=== PATIENT | male | born 1960 | race Caucasian/White ===

== ENCOUNTER 2016-05-17 00:01 | Emergency (ER) | payer OTHER ==
[~2016-05-17] VITALS: Ht 185.4 cm; Wt 147.0 kg
[2016-05-17] MEDS ORDERED: IRBE300T10 PO (00:15)
[2016-05-17] MEDS ORDERED: HYDR25TAB PO (00:15)
[2016-05-17] MEDS ORDERED: NS 1,000 ML IV SCH (01:22)
[2016-05-17] MEDS ORDERED: ONDANSETRON 4MG/2ML VIAL (J2405) IV ONE (01:30)
[2016-05-17] MEDS ORDERED: MORPHINE 4 MG/ML 1ML SYRINGE IV PRN (01:30)
[2016-05-17 01:49] LABS: BASO % 0.3 % (0.0-1.0); EOS # 0.2 K/mm3 (0.0-0.50); EOS % 1.5 % (0.0-3.0); LARGE UNSTAINED CELL # 0.1 K/mm3 (0.0-0.4); LARGE UNSTAINED CELL % 1.1 % (0.0-4.0); LYMPH # 0.7 K/mm3 (1.5-4.5); LYMPH % 6.5 % (24.0-44.0); MEAN CORPUSCULAR HEMOGLOBIN 30.7 pg (27.0-33.0); MEAN CORPUSCULAR HGB CONC 33.3 g/dl (32.0-36.5); MEAN CORPUSCULAR VOLUME 92.1 fl (80.0-96.0); MONO # 0.4 K/mm3 (0.0-0.8); MONO % 3.7 % (0.0-5.0); NEUTROPHILS % 86.8 % (36.0-66.0); PLATELET COUNT, AUTOMATED 189 k/mm3 (150-450); RED CELL DISTRIBUTION WIDTH 12.9 % (11.5-14.5); WHITE BLOOD COUNT 10.4 K/mm3 (4.0-10.0)
[2016-05-17 02:16] LABS: ALBUMIN 3.7 GM/DL (3.2-5.2); ALBUMIN/GLOBULIN RATIO 0.88 (1.00-1.93); ALKALINE PHOSPHATASE 67 U/L (45-117); ALT/SGPT 46 U/L (12-78); ANION GAP 10 MEQ/L (8-16); AST/SGOT 36 U/L (15-37); BILIRUBIN,DIRECT 0.2 MG/DL (0.0-0.2); BILIRUBIN,TOTAL 0.7 MG/DL (0.2-1.0); BLOOD UREA NITROGEN 8 MG/DL (7-18); CALCIUM LEVEL 8.6 MG/DL (8.5-10.1); CARBON DIOXIDE LEVEL 29 MEQ/L (21-32); CHLORIDE LEVEL 102 MEQ/L (98-107); CREATININE FOR GFR 0.98 MG/DL (0.70-1.30); GLOMERULAR FILTRATION RATE > 60.0 (>56); GLUCOSE, FASTING 113 MG/DL (70-105); POTASSIUM SERUM 4.3 MEQ/L (3.5-5.1); SODIUM LEVEL 141 MEQ/L (136-145); TOTAL PROTEIN 7.9 GM/DL (6.4-8.2)
[2016-05-17] MEDS ORDERED: KETOROLAC 30 MG/ML VIAL (J1885) As Ordered ONE (03:11)
[2016-05-17] MEDS ORDERED: KETOROLAC 30 MG/ML VIAL (J1885) IV ONE (03:15)
--- NOTE | 2016-05-17 04:20 | REPUSA ---
CLINICAL HISTORY: Elevated liver enzymes. TECHNIQUE: Realtime sonographic images were obtained in multiple projections. COMMENTS: The liver is demonstrates increased echogenicity compatible with fatty infiltration. No discrete hepa tic mass is seen. There is no intra or extrahepatic biliary ductal dilatation. CBD measures 5.7 mm. The gallbladder wal l is thickened measuring 4.7mm and there is no pericholecystic fluid. There is no abdominal ascites. The right kidney measures 11.43x 5.84 x 8 cm, free of hydronephrosis, calculi, cysts or masses. IMPRESSION: Fatty liver. Gallbladder sludge. Distended gallbladder. Diffuse thickening of the gallbladder suspicious for developing acute inflammatory changes. Thank you for your kind referral of this patient.
[2016-05-17] MEDS ORDERED: METOPROLOL TART 50 MG TAB PO ONE (04:30)
[2016-05-17 04:33] VITALS: BP 180/97
[2016-05-17] MEDS ORDERED: NORCO, ANEXSIA 5/325MG TABLET (HYDROcodone/ACETAMINOPHEN) PO ONE (05:00)
[2016-05-17] MEDS ORDERED: NORCOTAB PO (05:04)
[2016-05-17 05:15] VITALS: BP 164/84
--- NOTE | 2016-05-17 09:35 | REP ---
Abdominal series: Three views. History: Abdominal pain. Findings: Upright chest radiograph shows a mildly prominent heart. The lungs are well inflated and clear. No free subdiaphragmatic air is seen. No infiltrate is noted. Supine and erect views of the abdomen show a normal bowel gas pattern. No mass, organomegaly, or pathologic calcification is seen. Impression: Unremarkable abdominal series. Signed by Primo Burrows MD 05/17/2016 09:55 A
--- NOTE | 2016-05-17 20:27 | ECGEPIP ---
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
--- NOTE | 2016-05-18 21:28 | ED PDOC ---
Post-Departure Follow-Up dr galindo and mane terrazas faxed formal report of us for fu David Herrera MD May 18, 2016 21:28
== END 2016-05-17 05:26 | disposition home or self-care (01) ==
LOC: M ED 00:48
DX: K80.50 Calculus of bile duct without cholangitis or cholecystitis without obstruction (principal); I10 Essential (primary) hypertension
CPT/HCPCS: 74022; 76705; 80048; 80076; 82550; 82553; 83690; 85025; 93005; 93041; 96361; 96374; 96375; 96376; 99285; G0480; J1885; J2405

== ENCOUNTER → 2016-06-26 | Day surgery (SDC) | payer OTHER ==
[~2016-06-26] VITALS: Ht 185.4 cm; Wt 140.6 kg
[~2016-06-26] MED LIST: ASPI1TAB PO; BUPIVACAINE/EPIN 0.25% 30 ML VIAL As Ordered ONE; GLYCOPYRROLATE INJ 0.2 MG/ML 2 ML VIAL As Ordered ONE; HYDR25TAB PO; HYDROmorphone HCL 1 MG/ML SYRINGE (J1170) IV PRN; IRBE300T10 PO; LR 1,000 ML IV ONE; LR 1,000 ML IV SCH; METOCLOPRAMIDE INJ 10MG/2ML VIAL (J2765) As Ordered ONE; MIDAZOLAM INJ 2 MG/2 ML VIAL (J2250) As Ordered ONE; NEOSTIGMINE 1MG/ML 5 ML SYRINGE (J2710) As Ordered ONE; NORCO, ANEXSIA 5/325MG TABLET (HYDROcodone/ACETAMINOPHEN) PO PRN; NORCOTAB PO; ONDANSETRON 4MG/2ML VIAL (J2405) As Ordered ONE; ONDANSETRON 4MG/2ML VIAL (J2405) IV PRN; PERCOCET 5MG/325MG TAB PO PRN; PHENYLephrine HCL 500 MCG/5 ML (100MCG/ML) SYRINGE (J2370) As Ordered ONE; PROPOFOL 200 MG/20 ML VIAL As Ordered ONE; PROPOFOL 500 MG/50 ML VIAL As Ordered ONE; ROCURONIUM BROMIDE 50 MG/5 ML VIAL As Ordered ONE; dexameTHASONE 4 MG/ML 1ML VIAL (J1100) As Ordered ONE; fentaNYL 100 MCG/2 ML INJECTION (J3010) As Ordered ONE; fentaNYL 100 MCG/2 ML INJECTION (J3010) IV PRN
[2016-06-26 14:35] VITALS: BP 157/75
--- NOTE | 2016-06-29 06:36 | RO ---
DATE OF PROCEDURE: 06/26/2016 PREOPERATIVE DIAGNOSIS: Chronic cholecystitis. POSTOPERATIVE DIAGNOSIS: Chronic cholecystitis. PROCEDURE: Laparoscopic cholecystectomy. SURGEON: Dr. Trace Haley ACCOUNT RELATIONSHIP MANAGER: Dr. Hagan ANESTHESIA: General: COMPLICATIONS: None. ESTIMATED BLOOD LOSS: 10. INDICATIONS FOR PROCEDURE: The patient is a 56-year-old male who has had longstanding history of right upper quadrant abdominal pain found to have wall thickening and signs of chronic cholecystitis on ultrasound. Recommendation was to proceed with laparoscopic, possible open cholecystectomy. Risks of the procedure, not limited to, but including bleeding, infection, hernia formation, damage to surrounding structures, and need for further surgery discussed in detail with the patient. Informed consent was obtained and the procedure was planned. PROCEDURE: The patient was brought back to operating room six after sufficient sedation and the abdomen was sterilely prepped and draped. Next, a time-out was done to confirm proper patient and proper procedure. Following that, a 5 mm incision made in the left lower quadrant. Veress needle was inserted and the abdomen was insufflated to 15 mmHg. Next, a 5 mm Optiview port was used to gain access to the abdomen. Once the abdomen was entered, a 5 mm port was placed supraumbilically above a large incarcerated umbilical hernia. Once that was completed, a 10 mm port was placed subxiphoid and two 5 mm ports in the right upper quadrant. The gallbladder was very thick walled and very difficult to hold onto, but it was carefully grasped and elevated up towards the right shoulder. The cystic duct and cystic artery were then carefully dissected using a combination of blunt and sharp dissection. Once they were both clearly identified, they were both doubly clipped and cut. The gallbladder was then removed from gallbladder fossa using electrocautery and brought out through the 10 mm port site. The right upper quadrant was then irrigated and then 3 grams of Sandrita was placed in the wound bed to help control some little bit of oozing. Once this was completed, the abdomen was desufflated. Skin incisions were closed with #4-0 Vicryl subcuticular sutures. The abdomen was cleaned and dried. Steri-Strips, 4x4 and tape were applied, thus ending the procedure.
== END | disposition home or self-care (01) ==
LOC: M SDC 09:40
PROVIDERS: ATTEND Surgery
DX: K80.18 Calculus of gallbladder with other cholecystitis without obstruction (principal); I10 Essential (primary) hypertension; K21.9 Gastro-esophageal reflux disease without esophagitis; E66.01 Morbid (severe) obesity due to excess calories; Z79.899 Other long term (current) drug therapy; Z88.8 Allergy status to other drugs, medicaments and biological substances
CPT/HCPCS: 47562; 88304; J0690; J1100; J2250; J2370; J2405; J2710; J2765; J3010

== ENCOUNTER 2016-08-28 15:15 | Emergency (ER) | payer OTHER ==
[~2016-08-28] VITALS: Ht 185.4 cm; Wt 145.0 kg
[~2016-08-28 15:15] MED LIST changes: -BUPIVACAINE/EPIN 0.25% 30 ML VIAL As Ordered ONE; -GLYCOPYRROLATE INJ 0.2 MG/ML 2 ML VIAL As Ordered ONE; -HYDROmorphone HCL 1 MG/ML SYRINGE (J1170) IV PRN; -LR 1,000 ML IV ONE; -LR 1,000 ML IV SCH; -METOCLOPRAMIDE INJ 10MG/2ML VIAL (J2765) As Ordered ONE; -MIDAZOLAM INJ 2 MG/2 ML VIAL (J2250) As Ordered ONE; -NEOSTIGMINE 1MG/ML 5 ML SYRINGE (J2710) As Ordered ONE; -NORCO, ANEXSIA 5/325MG TABLET (HYDROcodone/ACETAMINOPHEN) PO PRN; -ONDANSETRON 4MG/2ML VIAL (J2405) As Ordered ONE; -ONDANSETRON 4MG/2ML VIAL (J2405) IV PRN; -PERCOCET 5MG/325MG TAB PO PRN; -PHENYLephrine HCL 500 MCG/5 ML (100MCG/ML) SYRINGE (J2370) As Ordered ONE; -PROPOFOL 200 MG/20 ML VIAL As Ordered ONE; -PROPOFOL 500 MG/50 ML VIAL As Ordered ONE; -ROCURONIUM BROMIDE 50 MG/5 ML VIAL As Ordered ONE; -dexameTHASONE 4 MG/ML 1ML VIAL (J1100) As Ordered ONE; -fentaNYL 100 MCG/2 ML INJECTION (J3010) As Ordered ONE; -fentaNYL 100 MCG/2 ML INJECTION (J3010) IV PRN
[2016-08-28] MEDS ORDERED: NS 1,000 ML IV SCH (15:53)
[2016-08-28] MEDS ORDERED: PANTOPRAZOLE 40MG INJ (PROTONIX) (C9113) IV ONE (16:00)
[2016-08-28] MEDS ORDERED: ONDANSETRON 4MG/2ML VIAL (J2405) IV ONE (16:00)
[2016-08-28] MEDS ORDERED: GASTROGRAFIN SOLUTION 30ML (Q9963) PO ONE (16:20)
[2016-08-28 16:47] LABS: BASO # 0.1 K/mm3 (0.0-0.2); BASO % 0.5 % (0.0-1.0); EOS # 0.2 K/mm3 (0.0-0.50); EOS % 1.7 % (0.0-3.0); LARGE UNSTAINED CELL # 0.3 K/mm3 (0.0-0.4); LARGE UNSTAINED CELL % 2.3 % (0.0-4.0); LYMPH # 1.9 K/mm3 (1.5-4.5); LYMPH % 12.6 % (24.0-44.0); MEAN CORPUSCULAR HEMOGLOBIN 32.2 pg (27.0-33.0); MEAN CORPUSCULAR HGB CONC 34.4 g/dl (32.0-36.5); MEAN CORPUSCULAR VOLUME 93.4 fl (80.0-96.0); MONO % 7.4 % (0.0-5.0); NEUTROPHILS # 9.6 K/mm3 (1.8-7.7); NEUTROPHILS % 75.4 % (36.0-66.0); PLATELET COUNT, AUTOMATED 272 k/mm3 (150-450); RED CELL DISTRIBUTION WIDTH 14.5 % (11.5-14.5); WHITE BLOOD COUNT 12.7 K/mm3 (4.0-10.0)
[2016-08-28] MEDS ORDERED: GASTROGRAFIN SOLUTION 30ML PO ONE (16:50)
[2016-08-28 16:56] LABS: INR 1.06
[2016-08-28 17:15] LABS: ALBUMIN 3.5 GM/DL (3.2-5.2); ALBUMIN/GLOBULIN RATIO 0.95 (1.00-1.93); ALKALINE PHOSPHATASE 51 U/L (45-117); ALT/SGPT 31 U/L (12-78); ANION GAP 7 MEQ/L (8-16); AST/SGOT 14 U/L (15-37); BILIRUBIN,DIRECT 0.2 MG/DL (0.0-0.2); BILIRUBIN,TOTAL 1.3 MG/DL (0.2-1.0); BLOOD UREA NITROGEN 16 MG/DL (7-18); CARBON DIOXIDE LEVEL 30 MEQ/L (21-32); CHLORIDE LEVEL 101 MEQ/L (98-107); GLOMERULAR FILTRATION RATE > 60.0 (>56); GLUCOSE, FASTING 118 MG/DL (70-105); POTASSIUM SERUM 3.8 MEQ/L (3.5-5.1); SODIUM LEVEL 138 MEQ/L (136-145); TOTAL PROTEIN 7.2 GM/DL (6.4-8.2)
[2016-08-28] MEDS ORDERED: ISOVUE-370 76% 100ML VIAL (Q9967) As Ordered ONE (17:51)
--- NOTE | 2016-08-28 18:21 | REP ---
Clinical: Gastrointestinal bleed. Technique: Axial contrast enhanced images from the lung bases to the pubic symphysis using oral and 100 ml Isovue 370 intravenous contrast material with coronal and sagittal re-formations. Findings: Lung bases are clear. Visualized heart and pericardium normal. Fatty infiltration of the liver noted without focal hepatic lesion. The patient is status post cholecystectomy. Spleen, pancreas, bilateral adrenal glands and kidneys are normal. The enteric system is without obstruction or acute inflammatory process. Normal terminal ileum and appendix identified in the right lower quadrant. Few scattered diverticula noted without acute diverticulitis. Pelvis demonstrates normal bladder and age appropriate prostate/seminal vesicles. No ascites. No free air. No adenopathy. No obvious mass lesion. Fat containing periumbilical hernia measures approximately 5 cm. Musculoskeletal structures demonstrate age-related changes without focal osseous abnormality. Impression: 1. Hepatosteatosis. 2. 5 cm fat containing periumbilical hernia. 3. No ascites. No further acute abdominopelvic pathology appreciated. Signed by Marco Hale MD 08/28/2016 06:14 P
[2016-08-28] MEDS ORDERED: PROCAER4 PR (18:43)
[2016-08-28 18:48] VITALS: BP 122/75
== END 2016-08-28 18:51 | disposition home or self-care (01) ==
LOC: M ED 15:15
DX: K92.2 Gastrointestinal hemorrhage, unspecified (principal); K64.8 Other hemorrhoids; K42.9 Umbilical hernia without obstruction or gangrene; K76.0 Fatty (change of) liver, not elsewhere classified; I11.0 Hypertensive heart disease with heart failure; Z90.49 Acquired absence of other specified parts of digestive tract; Z79.82 Long term (current) use of aspirin; Z79.899 Other long term (current) drug therapy; Z88.8 Allergy status to other drugs, medicaments and biological substances
CPT/HCPCS: 74177; 80048; 80076; 81001; 83690; 85025; 85610; 86850; 86900; 86901; 96374; 96375; 99283; C9113; J2405; Q9963; Q9967

== ENCOUNTER → 2017-02-24 | Outpatient (REF) | payer OTHER ==
[2017-02-24 13:22] LABS: BASO # 0.1 10^3/uL (0.0-0.2); EOS # 0.3 10^3/uL (0.0-0.50); IMMATURE GRANULOCYTE % 0.2 % (0-0); LYMPH # 1.2 10^3/uL (1.5-4.5); MEAN CORPUSCULAR HEMOGLOBIN 24.3 pg (27.0-33.0); MEAN CORPUSCULAR HGB CONC 31.1 g/dl (32.0-36.5); MONO # 1.3 10^3/uL (0.0-0.8); MONO % 16.1 % (0.0-5.0); NEUTROPHILS # 5.5 10^3/uL (1.8-7.7); NEUTROPHILS % 65.7 % (36.0-66.0); PLATELET COUNT, AUTOMATED 314 10^3/uL (150-450); RED CELL DISTRIBUTION WIDTH 17.5 % (11.5-14.5); WHITE BLOOD COUNT 8.3 10^3/uL (4.0-10.0)
[2017-02-24 13:54] LABS: ALBUMIN 3.8 GM/DL (3.2-5.2); ALKALINE PHOSPHATASE 63 U/L (45-117); ALT/SGPT 79 U/L (12-78); ANION GAP 8 MEQ/L (8-16); AST/SGOT 43 U/L (7-37); BILIRUBIN,TOTAL 1.1 MG/DL (0.2-1.0); BLOOD UREA NITROGEN 10 MG/DL (7-18); CALCIUM LEVEL 9.1 MG/DL (8.5-10.1); CARBON DIOXIDE LEVEL 32 MEQ/L (21-32); CHLORIDE LEVEL 99 MEQ/L (98-107); CHOLESTEROL LEVEL 195 MG/DL (<200); CREATININE FOR GFR 1.01 MG/DL (0.70-1.30); ESTIMATED AVERAGE GLUCOSE 123 MG/DL (60-110); GLOMERULAR FILTRATION RATE > 60.0 (>56); GLUCOSE, FASTING 99 MG/DL (70-105); POTASSIUM SERUM 4.1 MEQ/L (3.5-5.1); SODIUM LEVEL 139 MEQ/L (136-145); TRIGLYCERIDES LEVEL 73 MG/DL (<150)
== END ==
LOC: M SFHCADAM 08:07
DX: E66.01 Morbid (severe) obesity due to excess calories (principal); I10 Essential (primary) hypertension

== ENCOUNTER → 2017-03-02 | Outpatient (REF) | payer OTHER ==
[2017-03-02 13:09] LABS: AMMONIA 33 uMOL/L (<32)
[2017-03-03 10:03] LABS: HEPATITIS B SURFACE ANTIGEN NEGATIVE (NEGATIVE)
[2017-03-03 10:24] LABS: HEPATITIS C VIRUS ABY INDEX < 0.0 INDEX (<0.8)
[2017-03-03 10:25] LABS: HEPATITIS B CORE ANTIBODY IGM NEGATIVE (NEGATIVE)
[2017-03-03 10:26] LABS: HEPATITIS A ANTIBODY IGM NEGATIVE (NEGATIVE)
== END ==
LOC: M SFHCADAM 10:48
DX: R74.8 Abnormal levels of other serum enzymes (principal)

== ENCOUNTER → 2017-08-17 | Outpatient (REF) | payer OTHER ==
[2017-08-17 12:45] LABS: BASO # 0.1 10^3/uL (0.0-0.2); BASO % 0.9 % (0.0-1.0); EOS # 0.1 10^3/uL (0.0-0.50); EOS % 1.7 % (0.0-3.0); HEMOGLOBIN 15.6 g/dl (13.5-17.5); IMMATURE GRANULOCYTE % 0.5 % (0-3.0); LYMPH % 15.2 % (24.0-44.0); MEAN CORPUSCULAR HEMOGLOBIN 26.3 pg (27.0-33.0); MEAN CORPUSCULAR HGB CONC 32.5 g/dl (32.0-36.5); MEAN CORPUSCULAR VOLUME 80.9 fl (80.0-96.0); MONO # 0.9 10^3/uL (0.0-0.8); MONO % 14.2 % (0.0-5.0); NEUTROPHILS # 4.3 10^3/uL (1.8-7.7); NEUTROPHILS % 67.5 % (36.0-66.0); PLATELET COUNT, AUTOMATED 248 10^3/uL (150-450); RED BLOOD COUNT 5.93 10^6/uL (4.30-6.10); RED CELL DISTRIBUTION WIDTH 15.9 % (11.5-14.5); WHITE BLOOD COUNT 6.4 10^3/uL (4.0-10.0)
[2017-08-17 12:55] LABS: AMMONIA 32 uMOL/L (<32)
[2017-08-17 13:04] LABS: ALPHA FETOPROTEIN TUMOR QUANT 1.4 NG/ML (<8.1)
[2017-08-17 17:37] LABS: ALBUMIN 3.9 GM/DL (3.2-5.2); ALBUMIN/GLOBULIN RATIO 1.08 (1.00-1.93); ALKALINE PHOSPHATASE 65 U/L (45-117); ALT/SGPT 65 U/L (12-78); ANION GAP 10 MEQ/L (8-16); AST/SGOT 44 U/L (7-37); BILIRUBIN,TOTAL 1.3 MG/DL (0.2-1.0); BLOOD UREA NITROGEN 11 MG/DL (7-18); CALCIUM LEVEL 8.9 MG/DL (8.5-10.1); CARBON DIOXIDE LEVEL 30 MEQ/L (21-32); CHLORIDE LEVEL 101 MEQ/L (98-107); CHOLESTEROL LEVEL 213 MG/DL (<200); CHOLESTEROL RISK RATIO 2.917 (<5); CREATININE FOR GFR 0.99 MG/DL (0.70-1.30); GLOMERULAR FILTRATION RATE > 60.0 (>56); GLUCOSE, FASTING 87 MG/DL (70-100); HDL CHOLESTEROL 73 MG/DL (>40); LDL CHOLESTEROL 126.6 MG/DL (<100); MAGNESIUM LEVEL 1.9 MG/DL (1.8-2.4); NON-HDL-C 140 MG/DL; POTASSIUM SERUM 4.5 MEQ/L (3.5-5.1); SODIUM LEVEL 141 MEQ/L (136-145); TOTAL PROTEIN 7.5 GM/DL (6.4-8.2); TRIGLYCERIDES LEVEL 67 MG/DL (<150)
== END ==
LOC: M SFHCADAM 09:49
DX: E66.01 Morbid (severe) obesity due to excess calories (principal); F10.10 Alcohol abuse, uncomplicated; K76.0 Fatty (change of) liver, not elsewhere classified

== ENCOUNTER → 2018-02-07 | Outpatient (REF) | payer OTHER ==
[2018-02-07 12:57] LABS: BASO # 0.1 10^3/uL (0.0-0.2); BASO % 0.8 % (0.0-1.0); EOS # 0.4 10^3/uL (0.0-0.50); EOS % 4.2 % (0.0-3.0); HEMATOCRIT 52.6 % (42.0-52.0); HEMOGLOBIN 17.5 g/dl (13.5-17.5); IMMATURE GRANULOCYTE % 0.4 % (0-3.0); LYMPH # 1.7 10^3/uL (1.5-4.5); LYMPH % 17.1 % (24.0-44.0); MEAN CORPUSCULAR HGB CONC 33.3 g/dl (32.0-36.5); MEAN CORPUSCULAR VOLUME 87.1 fl (80.0-96.0); MONO # 1.1 10^3/uL (0.0-0.8); MONO % 11.5 % (0.0-5.0); NEUTROPHILS # 6.4 10^3/uL (1.8-7.7); PLATELET COUNT, AUTOMATED 289 10^3/uL (150-450); RED BLOOD COUNT 6.04 10^6/uL (4.30-6.10); RED CELL DISTRIBUTION WIDTH 13.5 % (11.5-14.5); WHITE BLOOD COUNT 9.7 10^3/uL (4.0-10.0)
[2018-02-07 13:06] LABS: ALBUMIN 3.7 GM/DL (3.2-5.2); ALBUMIN/GLOBULIN RATIO 0.93 (1.00-1.93); ALKALINE PHOSPHATASE 68 U/L (45-117); ALT/SGPT 19 U/L (12-78); ANION GAP 9 MEQ/L (8-16); AST/SGOT 13 U/L (7-37); BLOOD UREA NITROGEN 13 MG/DL (7-18); CALCIUM LEVEL 9.1 MG/DL (8.5-10.1); CARBON DIOXIDE LEVEL 31 MEQ/L (21-32); CHLORIDE LEVEL 98 MEQ/L (98-107); CHOLESTEROL LEVEL 178 MG/DL (<200); CHOLESTEROL RISK RATIO 3.632 (<5); CREATININE FOR GFR 1.06 MG/DL (0.70-1.30); GLOMERULAR FILTRATION RATE > 60.0 (>56); GLUCOSE, FASTING 84 MG/DL (70-100); HDL CHOLESTEROL 49 MG/DL (>40); LDL CHOLESTEROL 115 MG/DL (<100); NON-HDL-C 129 MG/DL; POTASSIUM SERUM 5.4 MEQ/L (3.5-5.1); SODIUM LEVEL 138 MEQ/L (136-145); TOTAL PROTEIN 7.7 GM/DL (6.4-8.2); TRIGLYCERIDES LEVEL 69 MG/DL (<150)
[2018-02-07 14:23] LABS: ESTIMATED AVERAGE GLUCOSE 105 MG/DL (60-110); HEMOGLOBIN A1c 5.3 %
== END ==
LOC: M SFHCADAM 08:11
DX: I11.0 Hypertensive heart disease with heart failure (principal); I50.32 Chronic diastolic (congestive) heart failure; F10.10 Alcohol abuse, uncomplicated
CPT/HCPCS: 84443

== ENCOUNTER → 2018-03-11 | Outpatient (REF) | payer OTHER ==
[~2018-03-11] MED LIST changes: +PROC1AER16 PR
[2018-03-11 14:14] LABS: FOLATE 12.1 NG/ML
== END ==
LOC: M SFHCADAM 09:30
PROVIDERS: ATTEND Physician Assistant Medical
DX: R20.0 Anesthesia of skin (principal)

== ENCOUNTER → 2018-10-03 | Outpatient (REF) | payer OTHER ==
[~2018-10-03] MED LIST changes: -ASPI1TAB PO; +ASPI81TA26 PO; +HYDR-3715 PO; -NORCOTAB PO
[2018-10-03 14:38] LABS: ALBUMIN 3.8 GM/DL (3.2-5.2); ALT/SGPT 27 U/L (12-78); BLOOD UREA NITROGEN 10 MG/DL (7-18); CALCIUM LEVEL 9.7 MG/DL (8.5-10.1); CARBON DIOXIDE LEVEL 33 MEQ/L (21-32); CHLORIDE LEVEL 98 MEQ/L (98-107); CREATININE FOR GFR 1.06 MG/DL (0.70-1.30); GLOMERULAR FILTRATION RATE > 60.0 (>56); GLUCOSE, FASTING 91 MG/DL (70-100); POTASSIUM SERUM 4.8 MEQ/L (3.5-5.1); SODIUM LEVEL 136 MEQ/L (136-145); TOTAL PROTEIN 7.9 GM/DL (6.4-8.2)
== END ==
LOC: M SFHCADAM 07:42
PROVIDERS: ATTEND Physician Assistant Medical
DX: I50.32 Chronic diastolic (congestive) heart failure (principal)

== ENCOUNTER → 2019-02-23 | Outpatient (REF) | payer OTHER ==
[2019-02-23 11:52] LABS: BASO # 0.1 10^3/uL (0.0-0.2); BASO % 0.7 % (0.0-1.0); EOS # 0.4 10^3/uL (0.0-0.5); EOS % 4.3 % (0.0-3.0); HEMATOCRIT 54.1 % (42.0-52.0); HEMOGLOBIN 16.9 g/dl (13.5-17.5); LYMPH # 1.3 10^3/uL (1.5-5.0); LYMPH % 15.6 % (24.0-44.0); MEAN CORPUSCULAR HEMOGLOBIN 28.8 pg (27.0-33.0); MEAN CORPUSCULAR HGB CONC 31.2 g/dl (32.0-36.5); MEAN CORPUSCULAR VOLUME 92.2 fl (80.0-96.0); MONO # 0.9 10^3/uL (0.0-0.8); MONO % 11.4 % (0.0-5.0); NEUTROPHILS # 5.4 10^3/uL (1.5-8.5); NEUTROPHILS % 67.1 % (36.0-66.0); PLATELET COUNT, AUTOMATED 234 10^3/uL (150-450); RED BLOOD COUNT 5.87 10^6/uL (4.30-6.10); WHITE BLOOD COUNT 8.1 10^3/uL (4.0-10.0)
[2019-02-23 12:40] LABS: ALBUMIN 3.5 GM/DL (3.2-5.2); ALT/SGPT 23 U/L (12-78); BILIRUBIN,TOTAL 1.1 MG/DL (0.2-1.0); BLOOD UREA NITROGEN 12 MG/DL (7-18); CALCIUM LEVEL 9.1 MG/DL (8.5-10.1); CARBON DIOXIDE LEVEL 31 MEQ/L (21-32); CHLORIDE LEVEL 101 MEQ/L (98-107); CHOLESTEROL LEVEL 158 MG/DL (<200); CHOLESTEROL RISK RATIO 3.674 (<5); CREATININE FOR GFR 1.01 MG/DL (0.70-1.30); GLOMERULAR FILTRATION RATE > 60.0 (>56); GLUCOSE, FASTING 97 MG/DL (70-100); HDL CHOLESTEROL 43 MG/DL (>40); LDL CHOLESTEROL 91 MG/DL (<100); NON-HDL-C 115 MG/DL; POTASSIUM SERUM 4.4 MEQ/L (3.5-5.1); SODIUM LEVEL 138 MEQ/L (136-145); TOTAL PROTEIN 7.8 GM/DL (6.4-8.2); TRIGLYCERIDES LEVEL 122 MG/DL (<150)
== END ==
LOC: M SFHCADAM 07:54
PROVIDERS: ATTEND Physician Assistant Medical
DX: I10 Essential (primary) hypertension (principal); I50.32 Chronic diastolic (congestive) heart failure

== ENCOUNTER → 2019-03-07 | Outpatient (REF) | payer OTHER ==
[2019-03-07 13:56] LABS: ALBUMIN 3.5 GM/DL (3.2-5.2); ALT/SGPT 20 U/L (12-78); BILIRUBIN,TOTAL 0.9 MG/DL (0.2-1.0); BLOOD UREA NITROGEN 15 MG/DL (7-18); C REACTIVE PROTEIN QUANTITATIV 3.55 MG/DL (0.00-0.30); CALCIUM LEVEL 9.4 MG/DL (8.5-10.1); CARBON DIOXIDE LEVEL 30 MEQ/L (21-32); CHLORIDE LEVEL 99 MEQ/L (98-107); CREATININE FOR GFR 1.16 MG/DL (0.70-1.30); GLOMERULAR FILTRATION RATE > 60.0 (>56); GLUCOSE, FASTING 100 MG/DL (70-100); POTASSIUM SERUM 4.4 MEQ/L (3.5-5.1); SODIUM LEVEL 139 MEQ/L (136-145)
== END ==
LOC: M SFHCADAM 10:13
PROVIDERS: ATTEND Physician Assistant Medical
DX: L03.116 Cellulitis of left lower limb (principal); I50.32 Chronic diastolic (congestive) heart failure

== ENCOUNTER 2022-05-01 12:30 | Inpatient (IN) | payer OTHER ==
[~2022-05-01] VITALS: Ht 185.4 cm; Wt 161.7 kg
[2022-05-01] VITALS (10 sets, daily range): BP systolic 110–144; BP diastolic 75–93; O2SAT 90
[~2022-05-01 12:30] MED LIST changes: +HYDR-3490 PO; -HYDR25TAB PO; -IRBE300T10 PO; +IRBE300T7 PO
[2022-05-01] MEDS ORDERED: IPRATROPIUM 0.5MG/ALBUTEROL 2.5MG INH SOL UD 3ML (DUONEB) NEB ONE (12:40)
[2022-05-01] MEDS ORDERED: ALBUTEROL SULFATE 2.5MG/0.5ML INH NEB SOLN INH ONE (12:40)
[2022-05-01 12:50] LABS: ABG BASE EXCESS -6.9 (-2.0-2.0); ABG HCO3 18.4 MEQ/L (22.0-26.0); ABG O2 SATURATION 88.8 % (95.0-99.0); ABG PARTIAL PRESSURE CO2 36.7 mmHg (35.0-45.0); ABG PARTIAL PRESSURE O2 61.4 mmHg (75.0-100.0); ABG STANDARD HCO3 18.8 MEQ/L (22.0-26.0); ABG TOTAL CO2 19.6 MEQ/L (23.0-31.0); ABG pH (ARTERIAL) 7.319 UNITS (7.350-7.450)
[2022-05-01 12:54] LABS: BASO # 0.1 10^3/uL (0.0-0.2); BASO % 0.4 % (0.0-1.0); EOS # 0.1 10^3/uL (0.0-0.5); EOS % 0.4 % (0.0-3.0); HEMOGLOBIN 15.3 g/dl (13.5-17.5); LYMPH # 1.5 10^3/uL (1.5-5.0); LYMPH % 8.2 % (24.0-44.0); MEAN CORPUSCULAR HEMOGLOBIN 27.5 pg (27.0-33.0); MEAN CORPUSCULAR HGB CONC 31.2 g/dl (32.0-36.5); MONO % 10.9 % (2.0-8.0); NEUTROPHILS # 14.7 10^3/uL (1.5-8.5); NEUTROPHILS % 78.8 % (36.0-66.0); PLATELET COUNT, AUTOMATED 290 10^3/uL (150-450); RED BLOOD COUNT 5.57 10^6/uL (4.30-6.10); WHITE BLOOD COUNT 18.7 10^3/uL (4.0-10.0)
[2022-05-01] MEDS ORDERED: PIPERACILLIN/TAZOBACTAM SOD 4.5 GM in D5W MINI-BAG PLUS 50 ML IV ONE (12:55)
[2022-05-01 13:18] LABS: INR 1.2; PROTHROMBIN TIME 15.5 SECONDS (12.5-14.5)
[2022-05-01] MEDS ORDERED: NS IV ONE (13:30)
[2022-05-01 13:44] LABS: ALBUMIN 3.2 G/DL (3.2-5.2); ALKALINE PHOSPHATASE 79 U/L (46-116); ALT/SGPT 29 U/L (7.0-40); AST/SGOT 67 U/L (<34); BILIRUBIN,DIRECT 0.5 MG/DL (<0.4); BILIRUBIN,TOTAL 1.4 MG/DL (0.3-1.2); BLOOD UREA NITROGEN 21 MG/DL (9-23); CARBON DIOXIDE LEVEL 25 MMOL/L (20-31); CHLORIDE LEVEL 100 MMOL/L (98-107); CK-MB VALUE MASS 9.7 NG/ML (<3.6); CPK CREATINE PHOSPHOKINASE 166 U/L (46-171); CREATININE FOR GFR 1.28 MG/DL (0.70-1.30); GLOMERULAR FILTRATION RATE > 60.0 (>49); GLUCOSE, FASTING 168 MG/DL (74-106); MB/CK RELATIVE INDEX 5.84 (< OR =4); POTASSIUM SERUM 5.2 MMOL/L (3.5-5.1); SODIUM LEVEL 137 MMOL/L (136-145); THYROID STIMULATING HORMONE 1.208 uIU/ML (0.55-4.78); THYROXINE (T4) 14.6 UG/DL (4.5-10.9); TOTAL PROTEIN 7.1 G/DL (5.7-8.2)
[2022-05-01 14:10] LABS: ABG BASE EXCESS -5.8 (-2.0-2.0); ABG HCO3 19.6 MEQ/L (22.0-26.0); ABG O2 SATURATION 94.4 % (95.0-99.0); ABG PARTIAL PRESSURE CO2 38.6 mmHg (35.0-45.0); ABG PARTIAL PRESSURE O2 80.4 mmHg (75.0-100.0); ABG STANDARD HCO3 19.7 MEQ/L (22.0-26.0); ABG TOTAL CO2 20.8 MEQ/L (23.0-31.0); ABG pH (ARTERIAL) 7.324 UNITS (7.350-7.450)
[2022-05-01] MEDS ORDERED: VANCOMYCIN HCL 2,000 MG in D5W 500 ML IV ONE (14:15)
[2022-05-01] MEDS ORDERED: VANCOMYCIN HCL 1,000 MG, VIAL MATE ADAPTER 1 EACH in NS 250 ML IV ONE ×6 (14:20)
[2022-05-01] MEDS ORDERED: FUROSEMIDE 40MG/4ML VIAL IV ONE (14:50)
[2022-05-01] MEDS ORDERED: ALBUTEROL SULFATE 2.5MG/0.5ML INH NEB SOLN NEB PRN (14:50)
[2022-05-01] MEDS ORDERED: HOME MED LIST COMPLETE! XX SCH (14:50)
[2022-05-01] MEDS ORDERED: HEPARIN SOD (PORCINE) 5000UNITS/ML 1ML VIAL/SYRINGE IV PRN (15:10)
[2022-05-01 15:36] LABS: PARTIAL THROMBOPLASTIN TIME 31.8 SECONDS (24.8-34.2)
[2022-05-01] MEDS: PANTOPRAZOLE 40MG VIAL IV SCH (15:56)
[2022-05-01] MEDS ORDERED: HEPARIN DRIP 25,000 UNITS in IV 1 EA IV SCH (16:00)
[2022-05-01] MEDS ORDERED: HEPARIN SOD (PORCINE) 5000UNITS/ML 1ML VIAL/SYRINGE IV ONE (16:00)
[2022-05-01 16:20] LABS: FERRITIN 67.2 NG/ML (10.5-307.3)
[2022-05-01] MEDS ORDERED: REMDESIVIR 200 MG in NS 250 ML IV ONE ×2 (17:00→18:00)
[2022-05-01] MEDS ORDERED: ISOVUE-370 76% 100ML VIAL As Ordered ONE (17:58)
[2022-05-01] MEDS ORDERED: cefTRIAXone SOD 1 GM in D5W MINI-BAG PLUS 50 ML IV SCH (18:00)
[2022-05-01] MEDS: ATORVASTATIN 20 MG TAB PO SCH (18:52)
[2022-05-01] MEDS: ASPIRIN 81MG ENTERIC TABLET PO SCH (18:52)
[2022-05-01] MEDS: BARICITINIB 2MG TABLET (OLUMIANT) FOR EUA PO SCH (18:52)
[2022-05-01] MEDS: CLOPIDOGREL 75 MG TAB PO SCH (18:52)
[2022-05-01 20:05] LABS: CK-MB VALUE MASS 7.8 NG/ML (<3.6); MB/CK RELATIVE INDEX 4.06 (< OR =4)
[2022-05-02] VITALS (18 sets, daily range): BP systolic 129–160; BP diastolic 77–97
[2022-05-02 02:51] LABS: CK-MB VALUE MASS 19.3 NG/ML (<3.6); MB/CK RELATIVE INDEX 1.59 (< OR =4)
[2022-05-02] MEDS ORDERED: VANCOMYCIN HCL 1,000 MG, VIAL MATE ADAPTER 1 EACH in D5W 250 ML IV SCH (03:00)
[2022-05-02 06:55] LABS: ABG BASE EXCESS -3.9 (-2.0-2.0); ABG HCO3 22.2 MEQ/L (22.0-26.0); ABG O2 SATURATION 97.2 % (95.0-99.0); ABG PARTIAL PRESSURE CO2 44.3 mmHg (35.0-45.0); ABG PARTIAL PRESSURE O2 98.7 mmHg (75.0-100.0); ABG STANDARD HCO3 21.2 MEQ/L (22.0-26.0); ABG TOTAL CO2 23.6 MEQ/L (23.0-31.0); ABG pH (ARTERIAL) 7.318 UNITS (7.350-7.450)
[2022-05-02 07:12] LABS: HEMATOCRIT 50.8 % (42.0-52.0); HEMOGLOBIN 15.3 g/dl (13.5-17.5); MEAN CORPUSCULAR HEMOGLOBIN 27.3 pg (27.0-33.0); MEAN CORPUSCULAR HGB CONC 30.1 g/dl (32.0-36.5); MEAN CORPUSCULAR VOLUME 90.7 fl (80.0-96.0); PLATELET COUNT, AUTOMATED 258 10^3/uL (150-450); WHITE BLOOD COUNT 23.8 10^3/uL (4.0-10.0)
[2022-05-02 07:38] LABS: BILIRUBIN,DIRECT 0.4 MG/DL (<0.4); BILIRUBIN,TOTAL 0.9 MG/DL (0.3-1.2); CALCIUM LEVEL 7.8 MG/DL (8.3-10.6); CREATININE FOR GFR 1.67 MG/DL (0.70-1.30); GLOMERULAR FILTRATION RATE 44.5 (>49); TOTAL PROTEIN 7.1 G/DL (5.7-8.2)
[2022-05-02] MEDS: ASPIRIN 81MG ENTERIC TABLET PO SCH (08:04)
[2022-05-02] MEDS: BARICITINIB 2MG TABLET (OLUMIANT) FOR EUA PO SCH (08:04)
[2022-05-02] MEDS: ATORVASTATIN 20 MG TAB PO SCH (08:04)
[2022-05-02] MEDS: CLOPIDOGREL 75 MG TAB PO SCH (08:05)
[2022-05-02] MEDS: PANTOPRAZOLE 40MG VIAL IV SCH (08:06)
[2022-05-02 08:09] LABS: CK-MB VALUE MASS 28.8 NG/ML (<3.6)
[2022-05-02 08:47] LABS: MB/CK RELATIVE INDEX 1.21 (< OR =4)
[2022-05-02] MEDS ORDERED: ENOXAPARIN 150MG/ML SYRINGE SC SCH (12:00)
[2022-05-02] MEDS ORDERED: REMDESIVIR 100 MG in NS 250 ML IV SCH ×2 (17:00→18:00)
== END 2022-05-02 16:49 | disposition short-term general hospital (02) | DRG 280 ==
LOC: M ED 12:30 → M ED INP 14:47 → M ICU 17:08
PROVIDERS: ADMIT Internal Medicine Pulmonary Disease; ATTEND Internal Medicine Pulmonary Disease
DX: I11.0 Hypertensive heart disease with heart failure (principal); I21.4 Non-ST elevation (NSTEMI) myocardial infarction; U07.1 COVID-19; J12.82 Pneumonia due to coronavirus disease 2019; J96.01 Acute respiratory failure with hypoxia; E87.20 Acidosis, unspecified; N17.9 Acute kidney failure, unspecified; E66.01 Morbid (severe) obesity due to excess calories; Z91.119 Patient's noncompliance with dietary regimen due to unspecified reason; L30.8 Other specified dermatitis; I87.8 Other specified disorders of veins; Z88.8 Allergy status to other drugs, medicaments and biological substances; Z87.891 Personal history of nicotine dependence; Z66 Do not resuscitate; I27.81 Cor pulmonale (chronic); I50.9 Heart failure, unspecified

== ENCOUNTER 2022-06-01 08:39 | Inpatient (IN) | payer OTHER ==
[~2022-06-01] VITALS: Ht 185.4 cm; Wt 143.1 kg
[2022-06-01] MEDS ORDERED: traZODone 25MG PER 1/2 TABLET PO PRN (15:15)
[2022-06-01] MEDS ORDERED: ONDANSETRON 4MG TAB PO PRN (15:15)
[2022-06-01] MEDS ORDERED: MECLIZINE 12.5 MG TAB PO PRN (15:15)
[2022-06-01 16:00] VITALS: BP 148/70
[2022-06-01] MEDS: REMEDY PHYTOPLEX Z-GUARD PASTE 113GM TUBE (FROM STOREROOM PRODUCT) TOP SCH ×2 (17:13→20:36)
[2022-06-01] MEDS: SUCRALFATE 1 GM TAB PO SCH (17:30)
[2022-06-01] MEDS ORDERED: ATOR40TA75 PO (17:31)
[2022-06-01] MEDS ORDERED: POLY17PO18 PO (17:31)
[2022-06-01] MEDS ORDERED: AQUAOIN12 TOP (17:31)
[2022-06-01] MEDS ORDERED: ASPI81TA26 PO (17:31)
[2022-06-01] MEDS ORDERED: SENN-186 PO (17:31)
[2022-06-01] MEDS ORDERED: SALI0.6530 NARES (17:31)
[2022-06-01] MEDS ORDERED: TORS10TA3 PO (17:31)
[2022-06-01] MEDS ORDERED: ELIQ5TAB PO (17:31)
[2022-06-01] MEDS ORDERED: ACET-683 PO (17:31)
[2022-06-01] MEDS ORDERED: HOME MED LIST COMPLETE! XX SCH (17:40)
[2022-06-01 18:59] LABS: INR 1.03; PROTHROMBIN TIME 13.7 SECONDS (12.5-14.5)
[2022-06-01 20:00] VITALS: BP 131/63
[2022-06-01] MEDS: SENNA 8.6 MG TAB (SENOKOT) PO SCH (20:35)
[2022-06-01] MEDS: APIXABAN 5 MG TAB (ELIQUIS) PO SCH (20:35)
[2022-06-01] MEDS: PANTOPRAZOLE 40MG TAB (PROTONIX) PO SCH (20:35)
[2022-06-01] MEDS: DOCUSATE SODIUM 100MG CAPSULE PO SCH (20:35)
[2022-06-02 06:00] VITALS: BP 128/73
[2022-06-02 06:25] LABS: BASO # 0.1 10^3/uL (0.0-0.2); BASO % 0.7 % (0.0-1.0); EOS # 0.4 10^3/uL (0.0-0.5); EOS % 4.3 % (0.0-3.0); HEMATOCRIT 40.2 % (42.0-52.0); HEMOGLOBIN 12.9 g/dl (13.5-17.5); LYMPH # 1.6 10^3/uL (1.5-5.0); LYMPH % 16.9 % (24.0-44.0); MEAN CORPUSCULAR HEMOGLOBIN 27.4 pg (27.0-33.0); MEAN CORPUSCULAR HGB CONC 32.1 g/dl (32.0-36.5); MEAN CORPUSCULAR VOLUME 85.5 fl (80.0-96.0); MONO # 1.3 10^3/uL (0.0-0.8); MONO % 13.4 % (2.0-8.0); NEUTROPHILS # 6.1 10^3/uL (1.5-8.5); NEUTROPHILS % 64.1 % (36.0-66.0); PLATELET COUNT, AUTOMATED 353 10^3/uL (150-450); WHITE BLOOD COUNT 9.6 10^3/uL (4.0-10.0)
[2022-06-02 06:51] LABS: ALBUMIN 2.8 G/DL (3.2-5.2); ALKALINE PHOSPHATASE 92 U/L (46-116); ALT/SGPT 30 U/L (7.0-40); AST/SGOT 17 U/L (<34); BILIRUBIN,TOTAL 0.6 MG/DL (0.3-1.2); BLOOD UREA NITROGEN 12 MG/DL (9-23); CALCIUM LEVEL 8.9 MG/DL (8.3-10.6); CARBON DIOXIDE LEVEL 31 MMOL/L (20-31); CHLORIDE LEVEL 101 MMOL/L (98-107); CREATININE FOR GFR 1.16 MG/DL (0.70-1.30); GLOMERULAR FILTRATION RATE > 60.0 (>49); GLUCOSE, FASTING 94 MG/DL (74-106); POTASSIUM SERUM 4.1 MMOL/L (3.5-5.1); SODIUM LEVEL 138 MMOL/L (136-145); TOTAL PROTEIN 5.9 G/DL (5.7-8.2)
[2022-06-02] MEDS: REMEDY PHYTOPLEX Z-GUARD PASTE 113GM TUBE (FROM STOREROOM PRODUCT) TOP SCH ×3 (08:59→19:36)
[2022-06-02] MEDS: DOCUSATE SODIUM 100MG CAPSULE PO SCH ×2 (09:00→19:35)
[2022-06-02] MEDS: APIXABAN 5 MG TAB (ELIQUIS) PO SCH ×2 (09:10→20:03)
[2022-06-02] MEDS: PANTOPRAZOLE 40MG TAB (PROTONIX) PO SCH ×2 (09:10→20:03)
[2022-06-02] MEDS: ATORVASTATIN 20 MG TAB PO SCH (09:10)
[2022-06-02] MEDS: TORSEMIDE 10 MG TABLET PO SCH (09:10)
[2022-06-02] MEDS: SUCRALFATE 1 GM TAB PO SCH ×3 (09:11→17:31)
[2022-06-02] MEDS: ASPIRIN 81MG ENTERIC TABLET PO SCH (09:11)
[2022-06-02 14:00] VITALS: BP 127/70
[2022-06-02] MEDS: LACTIC ACID 12% LOTION 225 GM BTL TOP SCH (15:50)
[2022-06-02] MEDS: GABAPENTIN 100 MG CAP PO SCH ×2 (17:31→20:03)
[2022-06-02] MEDS: SENNA 8.6 MG TAB (SENOKOT) PO SCH (19:36)
[2022-06-02 20:00] VITALS: BP 125/56
[2022-06-03 06:00] VITALS: BP 129/60
[2022-06-03 06:41] LABS: BASO # 0.1 10^3/uL (0.0-0.2); BASO % 0.7 % (0.0-1.0); EOS # 0.4 10^3/uL (0.0-0.5); EOS % 5.1 % (0.0-3.0); HEMATOCRIT 38.8 % (42.0-52.0); HEMOGLOBIN 12.7 g/dl (13.5-17.5); LYMPH # 1.6 10^3/uL (1.5-5.0); LYMPH % 19.3 % (24.0-44.0); MEAN CORPUSCULAR HEMOGLOBIN 27.8 pg (27.0-33.0); MEAN CORPUSCULAR HGB CONC 32.7 g/dl (32.0-36.5); MEAN CORPUSCULAR VOLUME 84.9 fl (80.0-96.0); MONO # 1.1 10^3/uL (0.0-0.8); MONO % 12.6 % (2.0-8.0); NEUTROPHILS # 5.2 10^3/uL (1.5-8.5); NEUTROPHILS % 61.5 % (36.0-66.0); PLATELET COUNT, AUTOMATED 379 10^3/uL (150-450); RED BLOOD COUNT 4.57 10^6/uL (4.30-6.10); WHITE BLOOD COUNT 8.4 10^3/uL (4.0-10.0)
[2022-06-03 07:00] LABS: BLOOD UREA NITROGEN 9 MG/DL (9-23); CALCIUM LEVEL 8.4 MG/DL (8.3-10.6); CARBON DIOXIDE LEVEL 30 MMOL/L (20-31); CHLORIDE LEVEL 101 MMOL/L (98-107); CREATININE FOR GFR 1.17 MG/DL (0.70-1.30); GLOMERULAR FILTRATION RATE > 60.0 (>49); GLUCOSE, FASTING 93 MG/DL (74-106); POTASSIUM SERUM 3.7 MMOL/L (3.5-5.1); SODIUM LEVEL 139 MMOL/L (136-145)
[2022-06-03] MEDS: DOCUSATE SODIUM 100MG CAPSULE PO SCH ×2 (09:00→20:06)
[2022-06-03] MEDS: REMEDY PHYTOPLEX Z-GUARD PASTE 113GM TUBE (FROM STOREROOM PRODUCT) TOP SCH ×3 (09:00→20:06)
[2022-06-03] MEDS: ATORVASTATIN 20 MG TAB PO SCH (10:05)
[2022-06-03] MEDS: PANTOPRAZOLE 40MG TAB (PROTONIX) PO SCH ×2 (10:06→20:06)
[2022-06-03] MEDS: TORSEMIDE 10 MG TABLET PO SCH (10:06)
[2022-06-03] MEDS: APIXABAN 5 MG TAB (ELIQUIS) PO SCH ×2 (10:06→20:06)
[2022-06-03] MEDS: SUCRALFATE 1 GM TAB PO SCH ×3 (10:06→17:01)
[2022-06-03] MEDS: ASPIRIN 81MG ENTERIC TABLET PO SCH (10:07)
[2022-06-03] MEDS: LACTIC ACID 12% LOTION 225 GM BTL TOP SCH (10:09)
[2022-06-03 14:00] VITALS: BP 114/62
[2022-06-03 19:45] VITALS: BP 132/84
[2022-06-03] MEDS: SENNA 8.6 MG TAB (SENOKOT) PO SCH (20:06)
[2022-06-04 05:29] VITALS: BP 128/68
[2022-06-04] MEDS: REMEDY PHYTOPLEX Z-GUARD PASTE 113GM TUBE (FROM STOREROOM PRODUCT) TOP SCH ×3 (09:00→21:00)
[2022-06-04] MEDS: DOCUSATE SODIUM 100MG CAPSULE PO SCH ×2 (09:00→21:00)
[2022-06-04] MEDS: PANTOPRAZOLE 40MG TAB (PROTONIX) PO SCH ×2 (09:16→21:21)
[2022-06-04] MEDS: TORSEMIDE 10 MG TABLET PO SCH (09:16)
[2022-06-04] MEDS: APIXABAN 5 MG TAB (ELIQUIS) PO SCH ×2 (09:16→21:21)
[2022-06-04] MEDS: ASPIRIN 81MG ENTERIC TABLET PO SCH (09:16)
[2022-06-04] MEDS: ATORVASTATIN 20 MG TAB PO SCH (09:17)
[2022-06-04] MEDS: SUCRALFATE 1 GM TAB PO SCH ×3 (09:21→17:15)
[2022-06-04 15:10] VITALS: BP 130/88
[2022-06-04] MEDS: LACTIC ACID 12% LOTION 225 GM BTL TOP SCH (15:36)
[2022-06-04] MEDS: ACETAMINOPHEN TAB 650MG DOSE (2X325MG) PO PRN (18:08)
[2022-06-04 20:00] VITALS: BP 131/57
[2022-06-04] MEDS: SENNA 8.6 MG TAB (SENOKOT) PO SCH (21:00)
[2022-06-05 06:00] VITALS: BP 128/58
[2022-06-05] MEDS: PANTOPRAZOLE 40MG TAB (PROTONIX) PO SCH ×2 (08:45→22:00)
[2022-06-05] MEDS: DOCUSATE SODIUM 100MG CAPSULE PO SCH ×2 (08:45→21:00)
[2022-06-05] MEDS: APIXABAN 5 MG TAB (ELIQUIS) PO SCH ×2 (08:45→22:01)
[2022-06-05] MEDS: TORSEMIDE 10 MG TABLET PO SCH (08:46)
[2022-06-05] MEDS: SUCRALFATE 1 GM TAB PO SCH ×3 (08:46→18:23)
[2022-06-05] MEDS: ATORVASTATIN 20 MG TAB PO SCH (08:46)
[2022-06-05] MEDS: ASPIRIN 81MG ENTERIC TABLET PO SCH (08:46)
[2022-06-05] MEDS: REMEDY PHYTOPLEX Z-GUARD PASTE 113GM TUBE (FROM STOREROOM PRODUCT) TOP SCH ×3 (08:47→22:02)
[2022-06-05] MEDS: LACTIC ACID 12% LOTION 225 GM BTL TOP SCH (08:47)
[2022-06-05] MEDS: ACETAMINOPHEN TAB 650MG DOSE (2X325MG) PO PRN ×2 (12:32→22:43)
[2022-06-05 14:00] VITALS: BP 134/82
[2022-06-05 20:00] VITALS: BP 132/71
[2022-06-05] MEDS: SENNA 8.6 MG TAB (SENOKOT) PO SCH (21:00)
[2022-06-06 06:00] VITALS: BP 118/67
[2022-06-06] MEDS: APIXABAN 5 MG TAB (ELIQUIS) PO SCH ×2 (08:37→20:56)
[2022-06-06] MEDS: ATORVASTATIN 20 MG TAB PO SCH (08:37)
[2022-06-06] MEDS: PANTOPRAZOLE 40MG TAB (PROTONIX) PO SCH ×2 (08:37→20:56)
[2022-06-06] MEDS: SUCRALFATE 1 GM TAB PO SCH ×3 (08:37→16:51)
[2022-06-06] MEDS: TORSEMIDE 10 MG TABLET PO SCH (08:37)
[2022-06-06] MEDS: ASPIRIN 81MG ENTERIC TABLET PO SCH (08:37)
[2022-06-06] MEDS: LACTIC ACID 12% LOTION 225 GM BTL TOP SCH (08:38)
[2022-06-06] MEDS: REMEDY PHYTOPLEX Z-GUARD PASTE 113GM TUBE (FROM STOREROOM PRODUCT) TOP SCH ×3 (08:38→20:56)
[2022-06-06] MEDS: DOCUSATE SODIUM 100MG CAPSULE PO SCH ×2 (08:40→20:56)
[2022-06-06 10:23] LABS: BASO # 0.1 10^3/uL (0.0-0.2); BASO % 0.6 % (0.0-1.0); EOS # 0.3 10^3/uL (0.0-0.5); EOS % 1.9 % (0.0-3.0); HEMATOCRIT 41.6 % (42.0-52.0); HEMOGLOBIN 13.6 g/dl (13.5-17.5); LYMPH # 1.6 10^3/uL (1.5-5.0); MEAN CORPUSCULAR HEMOGLOBIN 27.9 pg (27.0-33.0); MEAN CORPUSCULAR HGB CONC 32.7 g/dl (32.0-36.5); MEAN CORPUSCULAR VOLUME 85.2 fl (80.0-96.0); NEUTROPHILS # 9.7 10^3/uL (1.5-8.5); NEUTROPHILS % 72.9 % (36.0-66.0); PLATELET COUNT, AUTOMATED 482 10^3/uL (150-450); RED BLOOD COUNT 4.88 10^6/uL (4.30-6.10); WHITE BLOOD COUNT 13.3 10^3/uL (4.0-10.0)
[2022-06-06 10:49] LABS: MONO # 1.6 10^3/uL (0.0-0.8); MONO % 11.8 % (2.0-8.0)
[2022-06-06 10:55] LABS: BLOOD UREA NITROGEN 14 MG/DL (9-23); CALCIUM LEVEL 8.8 MG/DL (8.3-10.6); CARBON DIOXIDE LEVEL 26 MMOL/L (20-31); CHLORIDE LEVEL 101 MMOL/L (98-107); CREATININE FOR GFR 1.12 MG/DL (0.70-1.30); GLOMERULAR FILTRATION RATE > 60.0 (>49); GLUCOSE, FASTING 111 MG/DL (74-106); POTASSIUM SERUM 4.2 MMOL/L (3.5-5.1); SODIUM LEVEL 134 MMOL/L (136-145)
[2022-06-06] MEDS: ACETAMINOPHEN TAB 650MG DOSE (2X325MG) PO PRN (13:25)
[2022-06-06 14:00] VITALS: BP 130/58
[2022-06-06 20:00] VITALS: BP 136/80
[2022-06-06] MEDS: SENNA 8.6 MG TAB (SENOKOT) PO SCH (20:56)
[2022-06-07] MEDS: ACETAMINOPHEN TAB 650MG DOSE (2X325MG) PO PRN ×2 (01:50→19:51)
[2022-06-07 06:00] VITALS: BP 133/60
[2022-06-07] MEDS: SUCRALFATE 1 GM TAB PO SCH ×3 (08:16→17:57)
[2022-06-07] MEDS: APIXABAN 5 MG TAB (ELIQUIS) PO SCH ×2 (08:16→19:47)
[2022-06-07] MEDS: ATORVASTATIN 20 MG TAB PO SCH (08:16)
[2022-06-07] MEDS: ASPIRIN 81MG ENTERIC TABLET PO SCH (08:16)
[2022-06-07] MEDS: TORSEMIDE 10 MG TABLET PO SCH (08:16)
[2022-06-07] MEDS: PANTOPRAZOLE 40MG TAB (PROTONIX) PO SCH ×2 (08:16→19:47)
[2022-06-07] MEDS: LACTIC ACID 12% LOTION 225 GM BTL TOP SCH (08:17)
[2022-06-07] MEDS: REMEDY PHYTOPLEX Z-GUARD PASTE 113GM TUBE (FROM STOREROOM PRODUCT) TOP SCH ×3 (08:17→19:48)
[2022-06-07] MEDS: DOCUSATE SODIUM 100MG CAPSULE PO SCH ×2 (08:17→19:47)
[2022-06-07 14:00] VITALS: BP 112/66
[2022-06-07] MEDS: SENNA 8.6 MG TAB (SENOKOT) PO SCH (19:48)
[2022-06-07 20:00] VITALS: BP 133/61
[2022-06-08 06:00] VITALS: BP 138/64
[2022-06-08 06:12] LABS: BASO # 0.1 10^3/uL (0.0-0.2); BASO % 0.9 % (0.0-1.0); EOS # 0.3 10^3/uL (0.0-0.5); EOS % 2.2 % (0.0-3.0); HEMATOCRIT 41.1 % (42.0-52.0); HEMOGLOBIN 13.1 g/dl (13.5-17.5); LYMPH # 1.9 10^3/uL (1.5-5.0); LYMPH % 15.6 % (24.0-44.0); MEAN CORPUSCULAR HEMOGLOBIN 27.9 pg (27.0-33.0); MEAN CORPUSCULAR HGB CONC 31.9 g/dl (32.0-36.5); MEAN CORPUSCULAR VOLUME 87.4 fl (80.0-96.0); MONO # 1.5 10^3/uL (0.0-0.8); MONO % 12.3 % (2.0-8.0); NEUTROPHILS # 8.2 10^3/uL (1.5-8.5); NEUTROPHILS % 67.8 % (36.0-66.0); PLATELET COUNT, AUTOMATED 447 10^3/uL (150-450)
[2022-06-08 06:41] LABS: BLOOD UREA NITROGEN 18 MG/DL (9-23); CALCIUM LEVEL 8.8 MG/DL (8.3-10.6); CARBON DIOXIDE LEVEL 29 MMOL/L (20-31); CHLORIDE LEVEL 102 MMOL/L (98-107); CREATININE FOR GFR 1.11 MG/DL (0.70-1.30); GLOMERULAR FILTRATION RATE > 60.0 (>49); GLUCOSE, FASTING 95 MG/DL (74-106); POTASSIUM SERUM 4.1 MMOL/L (3.5-5.1); SODIUM LEVEL 139 MMOL/L (136-145)
[2022-06-08] MEDS: DOCUSATE SODIUM 100MG CAPSULE PO SCH ×2 (09:00→20:44)
[2022-06-08] MEDS: ATORVASTATIN 20 MG TAB PO SCH (09:06)
[2022-06-08] MEDS: SUCRALFATE 1 GM TAB PO SCH ×3 (09:06→17:02)
[2022-06-08] MEDS: TORSEMIDE 10 MG TABLET PO SCH (09:06)
[2022-06-08] MEDS: ASPIRIN 81MG ENTERIC TABLET PO SCH (09:06)
[2022-06-08] MEDS: APIXABAN 5 MG TAB (ELIQUIS) PO SCH ×2 (09:06→20:44)
[2022-06-08] MEDS: PANTOPRAZOLE 40MG TAB (PROTONIX) PO SCH ×2 (09:06→20:44)
[2022-06-08] MEDS: REMEDY PHYTOPLEX Z-GUARD PASTE 113GM TUBE (FROM STOREROOM PRODUCT) TOP SCH ×3 (09:07→20:45)
[2022-06-08] MEDS: LACTIC ACID 12% LOTION 225 GM BTL TOP SCH (09:07)
[2022-06-08 14:00] VITALS: BP 128/68
[2022-06-08] MEDS: LevoFLOXacin 750 MG TABLET PO SCH (17:02)
[2022-06-08 20:00] VITALS: BP 123/59
[2022-06-08] MEDS: AUGMENTIN 875 MG TAB PO SCH (20:44)
[2022-06-08] MEDS: SENNA 8.6 MG TAB (SENOKOT) PO SCH (20:44)
[2022-06-08] MEDS: ACETAMINOPHEN TAB 650MG DOSE (2X325MG) PO PRN (20:44)
[2022-06-09 05:57] LABS: BASO # 0.1 10^3/uL (0.0-0.2); BASO % 0.5 % (0.0-1.0); EOS # 0.2 10^3/uL (0.0-0.5); EOS % 1.9 % (0.0-3.0); HEMATOCRIT 38.3 % (42.0-52.0); HEMOGLOBIN 12.6 g/dl (13.5-17.5); LYMPH # 1.3 10^3/uL (1.5-5.0); LYMPH % 11.5 % (24.0-44.0); MEAN CORPUSCULAR HGB CONC 32.9 g/dl (32.0-36.5); MEAN CORPUSCULAR VOLUME 85.1 fl (80.0-96.0); MONO # 1.4 10^3/uL (0.0-0.8); MONO % 11.7 % (2.0-8.0); NEUTROPHILS # 8.6 10^3/uL (1.5-8.5); NEUTROPHILS % 73.5 % (36.0-66.0); PLATELET COUNT, AUTOMATED 436 10^3/uL (150-450); WHITE BLOOD COUNT 11.7 10^3/uL (4.0-10.0)
[2022-06-09 06:08] VITALS: BP 126/73
[2022-06-09] MEDS: SUCRALFATE 1 GM TAB PO SCH ×3 (07:30→18:06)
[2022-06-09] MEDS: AUGMENTIN 875 MG TAB PO SCH ×2 (08:56→20:12)
[2022-06-09] MEDS: ASPIRIN 81MG ENTERIC TABLET PO SCH (08:56)
[2022-06-09] MEDS: PANTOPRAZOLE 40MG TAB (PROTONIX) PO SCH ×2 (08:56→20:12)
[2022-06-09] MEDS: APIXABAN 5 MG TAB (ELIQUIS) PO SCH ×2 (08:56→20:12)
[2022-06-09] MEDS: REMEDY PHYTOPLEX Z-GUARD PASTE 113GM TUBE (FROM STOREROOM PRODUCT) TOP SCH ×3 (08:57→21:00)
[2022-06-09] MEDS: ATORVASTATIN 20 MG TAB PO SCH (08:57)
[2022-06-09] MEDS: TORSEMIDE 20 MG TAB PO SCH (08:57)
[2022-06-09] MEDS: LACTIC ACID 12% LOTION 225 GM BTL TOP SCH (08:58)
[2022-06-09] MEDS: DOCUSATE SODIUM 100MG CAPSULE PO SCH ×2 (09:00→20:11)
[2022-06-09 10:15] VITALS: BP 131/75
[2022-06-09 14:00] VITALS: BP 135/72
[2022-06-09] MEDS: LevoFLOXacin 750 MG TABLET PO SCH (18:06)
[2022-06-09 20:00] VITALS: BP 137/83
[2022-06-09] MEDS: SENNA 8.6 MG TAB (SENOKOT) PO SCH (20:11)
[2022-06-09] MEDS: ACETAMINOPHEN TAB 650MG DOSE (2X325MG) PO PRN (20:12)
[2022-06-10 06:01] VITALS: BP 130/75
[2022-06-10 06:24] LABS: BASO # 0.1 10^3/uL (0.0-0.2); BASO % 0.7 % (0.0-1.0); EOS # 0.2 10^3/uL (0.0-0.5); EOS % 1.6 % (0.0-3.0); HEMATOCRIT 40.6 % (42.0-52.0); HEMOGLOBIN 13.1 g/dl (13.5-17.5); LYMPH # 1.4 10^3/uL (1.5-5.0); LYMPH % 12.4 % (24.0-44.0); MEAN CORPUSCULAR HEMOGLOBIN 27.6 pg (27.0-33.0); MEAN CORPUSCULAR HGB CONC 32.3 g/dl (32.0-36.5); MEAN CORPUSCULAR VOLUME 85.7 fl (80.0-96.0); MONO # 1.3 10^3/uL (0.0-0.8); MONO % 11.6 % (2.0-8.0); NEUTROPHILS # 7.9 10^3/uL (1.5-8.5); NEUTROPHILS % 72.7 % (36.0-66.0); PLATELET COUNT, AUTOMATED 482 10^3/uL (150-450); RED BLOOD COUNT 4.74 10^6/uL (4.30-6.10); WHITE BLOOD COUNT 10.9 10^3/uL (4.0-10.0)
[2022-06-10 06:46] LABS: BLOOD UREA NITROGEN 12 MG/DL (9-23); CALCIUM LEVEL 8.7 MG/DL (8.3-10.6); CARBON DIOXIDE LEVEL 28 MMOL/L (20-31); CHLORIDE LEVEL 102 MMOL/L (98-107); CREATININE FOR GFR 1.07 MG/DL (0.70-1.30); GLOMERULAR FILTRATION RATE > 60.0 (>49); GLUCOSE, FASTING 98 MG/DL (74-106); POTASSIUM SERUM 3.5 MMOL/L (3.5-5.1); SODIUM LEVEL 139 MMOL/L (136-145)
[2022-06-10] MEDS: SUCRALFATE 1 GM TAB PO SCH ×3 (08:21→17:17)
[2022-06-10] MEDS: ASPIRIN 81MG ENTERIC TABLET PO SCH (08:21)
[2022-06-10] MEDS: AUGMENTIN 875 MG TAB PO SCH ×2 (08:22→21:30)
[2022-06-10] MEDS: TORSEMIDE 20 MG TAB PO SCH (08:22)
[2022-06-10] MEDS: PANTOPRAZOLE 40MG TAB (PROTONIX) PO SCH ×2 (08:22→21:30)
[2022-06-10] MEDS: ATORVASTATIN 20 MG TAB PO SCH (08:24)
[2022-06-10] MEDS: APIXABAN 5 MG TAB (ELIQUIS) PO SCH ×2 (08:24→21:30)
[2022-06-10] MEDS: ACETAMINOPHEN TAB 650MG DOSE (2X325MG) PO PRN ×2 (08:24→22:13)
[2022-06-10] MEDS: DOCUSATE SODIUM 100MG CAPSULE PO SCH ×2 (08:25→21:00)
[2022-06-10] MEDS: REMEDY PHYTOPLEX Z-GUARD PASTE 113GM TUBE (FROM STOREROOM PRODUCT) TOP SCH ×3 (08:25→21:00)
[2022-06-10] MEDS: LACTIC ACID 12% LOTION 225 GM BTL TOP SCH (08:34)
[2022-06-10] MEDS ORDERED: POTASSIUM CHLORIDE 10MEQ SR TABLET PO ONE (09:00)
[2022-06-10 09:59] LABS: ERYTHROCYTE SEDIMENTATION RATE 54 mm/hr (0-20)
[2022-06-10 14:00] VITALS: BP 114/68
[2022-06-10] MEDS: DOXYCYCLINE HYCLATE 100MG TABLET PO SCH ×2 (16:13→21:30)
[2022-06-10] MEDS: LACTOBACILLUS ACIDOPHILUS CAP (BACID) PO SCH (17:17)
[2022-06-10] MEDS: SENNA 8.6 MG TAB (SENOKOT) PO SCH (21:00)
[2022-06-10 22:00] VITALS: BP 138/82
[2022-06-11 05:33] VITALS: BP 125/63
[2022-06-11 06:36] LABS: BLOOD UREA NITROGEN 18 MG/DL (9-23); CALCIUM LEVEL 8.7 MG/DL (8.3-10.6); CARBON DIOXIDE LEVEL 28 MMOL/L (20-31); CHLORIDE LEVEL 102 MMOL/L (98-107); GLOMERULAR FILTRATION RATE > 60.0 (>49); GLUCOSE, FASTING 95 MG/DL (74-106); POTASSIUM SERUM 3.7 MMOL/L (3.5-5.1); SODIUM LEVEL 140 MMOL/L (136-145)
[2022-06-11] MEDS: SUCRALFATE 1 GM TAB PO SCH ×3 (07:30→18:05)
[2022-06-11] MEDS: DOCUSATE SODIUM 100MG CAPSULE PO SCH ×2 (09:00→20:22)
[2022-06-11] MEDS: POTASSIUM CHLORIDE 10MEQ SR TABLET PO SCH (09:05)
[2022-06-11] MEDS: LACTOBACILLUS ACIDOPHILUS CAP (BACID) PO SCH ×2 (09:05→18:05)
[2022-06-11] MEDS: ASPIRIN 81MG ENTERIC TABLET PO SCH (09:05)
[2022-06-11] MEDS: AUGMENTIN 875 MG TAB PO SCH ×2 (09:05→20:22)
[2022-06-11] MEDS: PANTOPRAZOLE 40MG TAB (PROTONIX) PO SCH ×2 (09:05→20:22)
[2022-06-11] MEDS: TORSEMIDE 20 MG TAB PO SCH (09:06)
[2022-06-11] MEDS: DOXYCYCLINE HYCLATE 100MG TABLET PO SCH ×2 (09:06→20:22)
[2022-06-11] MEDS: ATORVASTATIN 20 MG TAB PO SCH (09:06)
[2022-06-11] MEDS: REMEDY PHYTOPLEX Z-GUARD PASTE 113GM TUBE (FROM STOREROOM PRODUCT) TOP SCH ×3 (09:06→20:22)
[2022-06-11] MEDS: APIXABAN 5 MG TAB (ELIQUIS) PO SCH ×2 (09:06→20:22)
[2022-06-11 14:00] VITALS: BP 141/74
[2022-06-11] MEDS: LACTIC ACID 12% LOTION 225 GM BTL TOP SCH (15:06)
[2022-06-11] MEDS: SANTYL OINT 30GM TOP SCH (15:06)
[2022-06-11 20:00] VITALS: BP 101/57
[2022-06-11] MEDS: SENNA 8.6 MG TAB (SENOKOT) PO SCH (20:22)
[2022-06-12 05:51] VITALS: BP 149/88
[2022-06-12] MEDS: SUCRALFATE 1 GM TAB PO SCH ×3 (07:30→17:21)
[2022-06-12 07:45] LABS: HEMATOCRIT 40.6 % (42.0-52.0); HEMOGLOBIN 13.4 g/dl (13.5-17.5); MEAN CORPUSCULAR HEMOGLOBIN 28.2 pg (27.0-33.0); MEAN CORPUSCULAR VOLUME 85.5 fl (80.0-96.0); PLATELET COUNT, AUTOMATED 490 10^3/uL (150-450); RED BLOOD COUNT 4.75 10^6/uL (4.30-6.10); WHITE BLOOD COUNT 12.2 10^3/uL (4.0-10.0)
[2022-06-12 07:49] LABS: INR 1.07; PROTHROMBIN TIME 14.1 SECONDS (12.5-14.5)
[2022-06-12 07:56] LABS: CHOLESTEROL RISK RATIO 2.88 (<5); HDL CHOLESTEROL 37.5 MG/DL (>40); LDL CHOLESTEROL 54.3 MG/DL (<100); NON-HDL-C 70.5 MG/DL
[2022-06-12] MEDS: LACTOBACILLUS ACIDOPHILUS CAP (BACID) PO SCH ×2 (08:00→17:22)
[2022-06-12 08:30] VITALS: BP 133/83
[2022-06-12] MEDS: POTASSIUM CHLORIDE 10MEQ SR TABLET PO SCH (08:45)
[2022-06-12] MEDS: AUGMENTIN 875 MG TAB PO SCH ×2 (08:45→20:38)
[2022-06-12] MEDS: ATORVASTATIN 20 MG TAB PO SCH (08:45)
[2022-06-12] MEDS: DOXYCYCLINE HYCLATE 100MG TABLET PO SCH ×2 (08:45→20:38)
[2022-06-12] MEDS: PANTOPRAZOLE 40MG TAB (PROTONIX) PO SCH ×2 (08:46→20:38)
[2022-06-12] MEDS: REMEDY PHYTOPLEX Z-GUARD PASTE 113GM TUBE (FROM STOREROOM PRODUCT) TOP SCH ×3 (08:46→20:39)
[2022-06-12] MEDS: DOCUSATE SODIUM 100MG CAPSULE PO SCH ×2 (08:46→20:38)
[2022-06-12 09:48] LABS: HEMOGLOBIN A1c 5.6 % (4.0-6.0)
[2022-06-12 09:49] LABS: ALBUMIN 3.4 G/DL (3.2-5.2); ALKALINE PHOSPHATASE 91 U/L (46-116); ALT/SGPT 16 U/L (7.0-40); AST/SGOT 17 U/L (<34); BILIRUBIN,TOTAL 0.6 MG/DL (0.3-1.2); BLOOD UREA NITROGEN 15 MG/DL (9-23); CALCIUM LEVEL 8.8 MG/DL (8.3-10.6); CARBON DIOXIDE LEVEL 28 MMOL/L (20-31); CHLORIDE LEVEL 102 MMOL/L (98-107); CREATININE FOR GFR 1.05 MG/DL (0.70-1.30); GLOMERULAR FILTRATION RATE > 60.0 (>49); GLUCOSE, FASTING 103 MG/DL (74-106); POTASSIUM SERUM 3.5 MMOL/L (3.5-5.1); SODIUM LEVEL 138 MMOL/L (136-145); TOTAL PROTEIN 7.1 G/DL (5.7-8.2)
[2022-06-12] MEDS: ASPIRIN 81MG ENTERIC TABLET PO SCH (12:57)
[2022-06-12 14:00] VITALS: BP 126/76
[2022-06-12] MEDS: SANTYL OINT 30GM TOP SCH (15:33)
[2022-06-12] MEDS: LACTIC ACID 12% LOTION 225 GM BTL TOP SCH (15:33)
[2022-06-12] MEDS: RIVAROXABAN 20MG TAB (XARELTO) PO SCH (18:43)
[2022-06-12 20:00] VITALS: BP 136/62
[2022-06-12] MEDS: SENNA 8.6 MG TAB (SENOKOT) PO SCH (20:38)
[2022-06-12] MEDS ORDERED: APIXABAN 5 MG TAB (ELIQUIS) PO SCH (21:00)
[2022-06-13 06:00] VITALS: BP 141/61
[2022-06-13] MEDS: PANTOPRAZOLE 40MG TAB (PROTONIX) PO SCH ×2 (08:53→20:42)
[2022-06-13] MEDS: ATORVASTATIN 20 MG TAB PO SCH (08:53)
[2022-06-13] MEDS: SUCRALFATE 1 GM TAB PO SCH ×3 (08:54→17:39)
[2022-06-13] MEDS: LACTOBACILLUS ACIDOPHILUS CAP (BACID) PO SCH ×2 (08:54→17:39)
[2022-06-13] MEDS: CLOPIDOGREL 75 MG TAB PO SCH (08:54)
[2022-06-13] MEDS: DOCUSATE SODIUM 100MG CAPSULE PO SCH ×2 (08:54→20:42)
[2022-06-13] MEDS: POTASSIUM CHLORIDE 10MEQ SR TABLET PO SCH (08:54)
[2022-06-13] MEDS: AUGMENTIN 875 MG TAB PO SCH ×2 (08:54→20:42)
[2022-06-13] MEDS: DOXYCYCLINE HYCLATE 100MG TABLET PO SCH ×2 (08:54→20:42)
[2022-06-13] MEDS: REMEDY PHYTOPLEX Z-GUARD PASTE 113GM TUBE (FROM STOREROOM PRODUCT) TOP SCH ×3 (09:00→21:00)
[2022-06-13] MEDS: SANTYL OINT 30GM TOP SCH (10:00)
[2022-06-13] MEDS: LACTIC ACID 12% LOTION 225 GM BTL TOP SCH (10:00)
[2022-06-13 14:00] VITALS: BP 132/74
[2022-06-13] MEDS: RIVAROXABAN 20MG TAB (XARELTO) PO SCH (17:39)
[2022-06-13 20:00] VITALS: BP 112/57
[2022-06-13] MEDS: SENNA 8.6 MG TAB (SENOKOT) PO SCH (20:42)
[2022-06-13] MEDS: ACETAMINOPHEN TAB 650MG DOSE (2X325MG) PO PRN (20:52)
[2022-06-14 06:00] VITALS: BP 137/58
[2022-06-14] MEDS: PANTOPRAZOLE 40MG TAB (PROTONIX) PO SCH ×2 (08:43→20:13)
[2022-06-14] MEDS: AUGMENTIN 875 MG TAB PO SCH ×2 (08:43→20:13)
[2022-06-14] MEDS: LACTOBACILLUS ACIDOPHILUS CAP (BACID) PO SCH ×2 (08:43→17:12)
[2022-06-14] MEDS: SUCRALFATE 1 GM TAB PO SCH ×3 (08:43→17:12)
[2022-06-14] MEDS: DOXYCYCLINE HYCLATE 100MG TABLET PO SCH ×2 (08:43→20:13)
[2022-06-14] MEDS: CLOPIDOGREL 75 MG TAB PO SCH (08:43)
[2022-06-14] MEDS: TORSEMIDE 20 MG TAB PO SCH (08:43)
[2022-06-14] MEDS: ATORVASTATIN 20 MG TAB PO SCH (08:44)
[2022-06-14] MEDS: POTASSIUM CHLORIDE 10MEQ SR TABLET PO SCH (08:44)
[2022-06-14] MEDS: DOCUSATE SODIUM 100MG CAPSULE PO SCH ×2 (08:44→21:00)
[2022-06-14] MEDS: LACTIC ACID 12% LOTION 225 GM BTL TOP SCH (08:45)
[2022-06-14] MEDS: SANTYL OINT 30GM TOP SCH (08:45)
[2022-06-14] MEDS: REMEDY PHYTOPLEX Z-GUARD PASTE 113GM TUBE (FROM STOREROOM PRODUCT) TOP SCH ×3 (08:45→21:00)
[2022-06-14 14:00] VITALS: BP 135/67
[2022-06-14] MEDS: RIVAROXABAN 20MG TAB (XARELTO) PO SCH (17:12)
[2022-06-14 20:00] VITALS: BP 137/63
[2022-06-14] MEDS: ACETAMINOPHEN TAB 650MG DOSE (2X325MG) PO PRN (20:14)
[2022-06-14] MEDS: SENNA 8.6 MG TAB (SENOKOT) PO SCH (21:00)
[2022-06-15 06:00] VITALS: BP 139/64
[2022-06-15 06:00] LABS: BASO # 0.1 10^3/uL (0.0-0.2); BASO % 0.9 % (0.0-1.0); EOS # 0.2 10^3/uL (0.0-0.5); EOS % 2.3 % (0.0-3.0); HEMATOCRIT 41.1 % (42.0-52.0); HEMOGLOBIN 13.2 g/dl (13.5-17.5); LYMPH # 1.7 10^3/uL (1.5-5.0); LYMPH % 16.5 % (24.0-44.0); MEAN CORPUSCULAR HEMOGLOBIN 27.7 pg (27.0-33.0); MEAN CORPUSCULAR HGB CONC 32.1 g/dl (32.0-36.5); MEAN CORPUSCULAR VOLUME 86.3 fl (80.0-96.0); MONO # 1.1 10^3/uL (0.0-0.8); MONO % 10.8 % (2.0-8.0); NEUTROPHILS # 6.9 10^3/uL (1.5-8.5); NEUTROPHILS % 68.5 % (36.0-66.0); PLATELET COUNT, AUTOMATED 434 10^3/uL (150-450); RED BLOOD COUNT 4.76 10^6/uL (4.30-6.10); WHITE BLOOD COUNT 10.1 10^3/uL (4.0-10.0)
[2022-06-15 06:27] LABS: BLOOD UREA NITROGEN 13 MG/DL (9-23); CALCIUM LEVEL 8.6 MG/DL (8.3-10.6); CARBON DIOXIDE LEVEL 30 MMOL/L (20-31); CHLORIDE LEVEL 104 MMOL/L (98-107); CREATININE FOR GFR 1.14 MG/DL (0.70-1.30); GLOMERULAR FILTRATION RATE > 60.0 (>49); GLUCOSE, FASTING 94 MG/DL (74-106); POTASSIUM SERUM 3.6 MMOL/L (3.5-5.1); SODIUM LEVEL 141 MMOL/L (136-145)
[2022-06-15] MEDS: DOCUSATE SODIUM 100MG CAPSULE PO SCH (08:14)
[2022-06-15] MEDS: POTASSIUM CHLORIDE 10MEQ SR TABLET PO SCH (08:37)
[2022-06-15] MEDS: TORSEMIDE 20 MG TAB PO SCH (08:37)
[2022-06-15] MEDS: ATORVASTATIN 20 MG TAB PO SCH (08:37)
[2022-06-15] MEDS: LACTOBACILLUS ACIDOPHILUS CAP (BACID) PO SCH (08:37)
[2022-06-15] MEDS: DOXYCYCLINE HYCLATE 100MG TABLET PO SCH (08:37)
[2022-06-15] MEDS: SUCRALFATE 1 GM TAB PO SCH (08:37)
[2022-06-15] MEDS: PANTOPRAZOLE 40MG TAB (PROTONIX) PO SCH (08:37)
[2022-06-15] MEDS: AUGMENTIN 875 MG TAB PO SCH (08:37)
[2022-06-15] MEDS: CLOPIDOGREL 75 MG TAB PO SCH (08:37)
[2022-06-15] MEDS: SANTYL OINT 30GM TOP SCH (08:39)
[2022-06-15] MEDS: LACTIC ACID 12% LOTION 225 GM BTL TOP SCH (08:39)
[2022-06-15] MEDS: REMEDY PHYTOPLEX Z-GUARD PASTE 113GM TUBE (FROM STOREROOM PRODUCT) TOP SCH (08:40)
[2022-06-15] MEDS ORDERED: POTA-136 PO (09:39)
[2022-06-15] MEDS ORDERED: DOXY100T PO (09:39)
[2022-06-15] MEDS ORDERED: SUCR1TA PO (09:39)
[2022-06-15] MEDS ORDERED: ATOR40TA75 PO (09:39)
[2022-06-15] MEDS ORDERED: CLOP75TA2 PO (09:39)
[2022-06-15] MEDS ORDERED: PANT40TA29 PO (09:39)
[2022-06-15] MEDS ORDERED: TORS20TA2 PO (09:39)
[2022-06-15] MEDS ORDERED: XARE20TA PO (09:39)
[2022-06-18 11:28] LABS: DRVV SCREEN 58.1 SEC
[2022-06-18 11:50] LABS: PTT LUPUS TYPE ANTICOAG SCREEN 1.5 (0-1.2)
[2022-06-18 12:01] LABS: DRVV CONFIRM 65.4 SEC; LUPUS CONFIRM RATIO 1.9
[2022-06-18 12:45] LABS: NORMALIZED RATIO 0.79 (0.00-1.20)
[2022-06-22 13:07] LABS: ANCA-ATYPICAL <1:20 titer (Neg:<1:20); ANTI THROMBIN 3 ANTIGEN IMMUNO 121 % (72-124); ANTI THROMBIN 3 FUNCT ACTIVITY 132 % (75-135); ANTINUCLEAR ANTIBODIES DIRECT Negative (Negative); CARDIOLIPIN IGA ANTIBODY <9 APL U/mL (0-11); CARDIOLIPIN IGG ANTIBODY <9 GPL U/mL (0-14); CARDIOLIPIN IGM ANTIBODY <9 MPL U/mL (0-12); CYTOPLASMIC NEUTROP AB ANCA-C <1:20 titer (Neg:<1:20); HOMOCYST(E)INE SERUM 17.6 umol/L (0.0-17.2); PERINUCLEAR AB ANCA-P <1:20 titer (Neg:<1:20); PROTEIN C ANTIGEN 112 % (60-150); PROTEIN S ANTIGEN FREE 103 % (61-136); PROTEIN S ANTIGEN TOTAL 132 % (60-150)
== END 2022-06-15 10:15 | disposition home health service (06) | DRG 56 ==
LOC: EEVIPCON 16:19 → M PM&R 16:19
PROVIDERS: ADMIT Physical Medicine & Rehabilitation; ATTEND Physical Medicine & Rehabilitation
PROC: 0HBNXZZ Excision of Left Foot Skin, External Approach (ICD-10-PCS; principal; 2022-06-11)
DX: I69.351 Hemiplegia and hemiparesis following cerebral infarction affecting right dominant side (principal); L89.624 Pressure ulcer of left heel, stage 4; I63.531 Cerebral infarction due to unspecified occlusion or stenosis of right posterior cerebral artery; Q21.12 Patent foramen ovale; I13.0 Hypertensive heart and chronic kidney disease with heart failure and stage 1 through stage 4 chronic kidney disease, or unspecified chronic kidney disease; G47.33 Obstructive sleep apnea (adult) (pediatric); I50.9 Heart failure, unspecified; F10.10 Alcohol abuse, uncomplicated; I87.2 Venous insufficiency (chronic) (peripheral); I89.0 Lymphedema, not elsewhere classified; Z74.09 Other reduced mobility; Z74.1 Need for assistance with personal care; I69.393 Ataxia following cerebral infarction; I69.322 Dysarthria following cerebral infarction; Z98.41 Cataract extraction status, right eye; Z98.42 Cataract extraction status, left eye; Z90.49 Acquired absence of other specified parts of digestive tract; Z86.711 Personal history of pulmonary embolism; Z79.01 Long term (current) use of anticoagulants; Z79.82 Long term (current) use of aspirin; Z79.899 Other long term (current) drug therapy; Z88.8 Allergy status to other drugs, medicaments and biological substances; Z66 Do not resuscitate; I27.20 Pulmonary hypertension, unspecified; K21.9 Gastro-esophageal reflux disease without esophagitis; E66.01 Morbid (severe) obesity due to excess calories; E87.6 Hypokalemia; N18.2 Chronic kidney disease, stage 2 (mild)

== ENCOUNTER → 2022-06-26 | Outpatient (REF) | payer OTHER ==
[~2022-06-26] MED LIST changes: +ACET-683 PO; +AQUAOIN12 TOP; +ATOR40TA75 PO; +CLOP75TA2 PO; +DOXY100T PO; +ELIQ5TAB PO; +PANT40TA29 PO; +POLY17PO18 PO; +POTA-136 PO; +SALI0.6530 NARES; +SENN-186 PO; +SUCR1TA PO; +TORS10TA3 PO; +TORS20TA2 PO; +XARE20TA PO
[2022-06-26 10:57] LABS: BASO # 0.1 10^3/uL (0.0-0.2); BASO % 1.1 % (0.0-1.0); EOS # 0.3 10^3/uL (0.0-0.5); EOS % 3.3 % (0.0-3.0); HEMATOCRIT 42.8 % (42.0-52.0); HEMOGLOBIN 13.7 g/dl (13.5-17.5); LYMPH # 1.6 10^3/uL (1.5-5.0); LYMPH % 18.5 % (24.0-44.0); MEAN CORPUSCULAR HEMOGLOBIN 28.1 pg (27.0-33.0); MEAN CORPUSCULAR VOLUME 87.7 fl (80.0-96.0); MONO % 11.5 % (2.0-8.0); NEUTROPHILS # 5.5 10^3/uL (1.5-8.5); PLATELET COUNT, AUTOMATED 315 10^3/uL (150-450); RED BLOOD COUNT 4.88 10^6/uL (4.30-6.10); WHITE BLOOD COUNT 8.4 10^3/uL (4.0-10.0)
[2022-06-26 11:26] LABS: ALBUMIN 3.4 G/DL (3.2-5.2); ALKALINE PHOSPHATASE 82 U/L (46-116); ALT/SGPT 25 U/L (7.0-40); AST/SGOT 25 U/L (<34); BILIRUBIN,TOTAL 0.9 MG/DL (0.3-1.2); BLOOD UREA NITROGEN 15 MG/DL (9-23); CALCIUM LEVEL 8.7 MG/DL (8.3-10.6); CARBON DIOXIDE LEVEL 31 MMOL/L (20-31); CHLORIDE LEVEL 103 MMOL/L (98-107); CREATININE FOR GFR 1.19 MG/DL (0.70-1.30); GLOMERULAR FILTRATION RATE > 60.0 (>49); GLUCOSE, FASTING 87 MG/DL (74-106); POTASSIUM SERUM 3.7 MMOL/L (3.5-5.1); SODIUM LEVEL 141 MMOL/L (136-145); TOTAL PROTEIN 6.5 G/DL (5.7-8.2)
[2022-06-26 11:28] LABS: FREE T4 1.14 NG/DL (0.89-1.76); THYROID STIMULATING HORMONE 0.964 uIU/ML (0.55-4.78)
== END ==
LOC: M LAB REF 10:01 → M SHH 10:01
PROVIDERS: ATTEND Nurse Practitioner Adult Health
DX: I50.32 Chronic diastolic (congestive) heart failure (principal); I25.10 Atherosclerotic heart disease of native coronary artery without angina pectoris; I10 Essential (primary) hypertension

== ENCOUNTER → 2022-08-27 | Outpatient (REF) | payer OTHER | LOC: M LAB REF 17:38 | PROVIDERS: ATTEND Podiatrist | DX: L03.125 Acute lymphangitis of right lower limb (principal) ==

== ENCOUNTER → 2023-02-26 | Outpatient (REF) | payer OTHER ==
[2023-02-26 17:13] LABS: HEMOGLOBIN A1c 5.3 % (4.0-6.0)
[2023-02-26 18:45] LABS: FOLATE 18.5 NG/ML (>5.4)
== END ==
LOC: M LAB REF 15:27
PROVIDERS: ATTEND Psychiatry & Neurology Neurology
DX: E56.9 Vitamin deficiency, unspecified (principal)

== ENCOUNTER → 2023-07-29 | Outpatient (CLI) | payer OTHER ==
[~2023-07-29] MED LIST changes: +IRBE300T25 PO; -IRBE300T7 PO; -SALI0.6530 NARES; +SODI88SP NARES
[2023-07-29 11:38] LABS: BASO # 0.1 10^3/uL (0.0-0.2); BASO % 0.8 % (0.0-1.0); EOS # 0.2 10^3/uL (0.0-0.5); EOS % 2.2 % (0.0-3.0); HEMATOCRIT 47.8 % (42.0-52.0); HEMOGLOBIN 15.6 g/dl (13.5-17.5); LYMPH # 1.6 10^3/uL (1.5-5.0); LYMPH % 21.1 % (24.0-44.0); MEAN CORPUSCULAR HEMOGLOBIN 28.9 pg (27.0-33.0); MEAN CORPUSCULAR HGB CONC 32.6 g/dl (32.0-36.5); MEAN CORPUSCULAR VOLUME 88.7 fl (80.0-96.0); MONO # 0.7 10^3/uL (0.0-0.8); MONO % 9.7 % (2.0-8.0); NEUTROPHILS # 4.9 10^3/uL (1.5-8.5); NEUTROPHILS % 65.9 % (36.0-66.0); PLATELET COUNT, AUTOMATED 299 10^3/uL (150-450); RED BLOOD COUNT 5.39 10^6/uL (4.30-6.10); WHITE BLOOD COUNT 7.4 10^3/uL (4.0-10.0)
[2023-07-29 12:00] LABS: ALBUMIN 4.2 G/DL (3.2-5.2); ALKALINE PHOSPHATASE 80 U/L (46-116); ALT/SGPT 28 U/L (7.0-40); AST/SGOT 13 U/L (<34); BILIRUBIN,TOTAL 1.1 MG/DL (0.3-1.2); BLOOD UREA NITROGEN 12 MG/DL (9-23); CALCIUM LEVEL 9.5 MG/DL (8.3-10.6); CARBON DIOXIDE LEVEL 34 MMOL/L (20-31); CHLORIDE LEVEL 101 MMOL/L (98-107); CHOLESTEROL LEVEL 131 MG/DL (<200); CHOLESTEROL RISK RATIO 2.59 (<5); CREATININE FOR GFR 1.19 MG/DL (0.70-1.30); GLOMERULAR FILTRATION RATE > 60.0 (>49); GLUCOSE, FASTING 93 MG/DL (74-106); HDL CHOLESTEROL 50.5 MG/DL (>40); LDL CHOLESTEROL 65.5 MG/DL (<100); NON-HDL-C 80.5 MG/DL; POTASSIUM SERUM 4.4 MMOL/L (3.5-5.1); SODIUM LEVEL 141 MMOL/L (136-145); TOTAL PROTEIN 7.4 G/DL (5.7-8.2); TRIGLYCERIDES LEVEL 75 MG/DL (<150)
[2023-07-29 12:02] LABS: FREE T4 1.45 NG/DL (0.89-1.76); THYROID STIMULATING HORMONE 1.281 uIU/ML (0.55-4.78)
[2023-07-29 12:08] LABS: HEMOGLOBIN A1c 5.2 % (4.0-6.0)
== END ==
LOC: M PLALAB 08:06
PROVIDERS: ATTEND Nurse Practitioner Adult Health
DX: I10 Essential (primary) hypertension (principal); I25.10 Atherosclerotic heart disease of native coronary artery without angina pectoris; E66.01 Morbid (severe) obesity due to excess calories

== ENCOUNTER → 2024-10-04 | Outpatient (REF) | payer OTHER | LOC: M LAB REF 16:54 | PROVIDERS: ATTEND Family Medicine | DX: L03.115 Cellulitis of right lower limb (principal) ==